=== PATIENT | male | born 1995 | race Caucasian/White ===

== ENCOUNTER 2016-05-08 02:04 | Emergency (ER) | payer BC ==
[~2016-05-08] VITALS: Ht 180.3 cm; Wt 65.4 kg
[2016-05-08 02:06] VITALS: TEMP 36.7; Ht 180.3 cm; Wt 65.4 kg
--- NOTE | 2016-05-08 02:26 | EMERGENCY ROOM VISIT NOTE ---
History Report prepared by Nesha: Yaritza Antonio Under the Supervision of: Dr. Roro Dowling D.O. First contact with patient: 02:11 Chief Complaint: FLANK PAIN Stated Complaint: MONO - LEFT SIDE PAIN History of Present Illness The patient is a 20 year old male who presents to the Emergency Room with complaints of constant left sided abdominal pain beginning today. The patient was diagnosed with Lincoln two weeks ago. He notes that he has been feeling good and worked yesterday. He thinks working might have been too much. The patient was home from [facility] this weekend and was pumping gas today when he began to experience the left sided abdominal pain. He drove back to [place] and still have the abdominal pain when he went to bed. The patient notes that his sore throat is getting better since adding an additional 20mg a day of Prednisone. The patient denies cough, shortness of breath, pain with deep breath or worsening pain with position change. Source of History: patient Onset: today Position: abdomen (left sided) Timing: constant Associated Symptoms: + sorethroat, No SOB, No cough Review of Systems See HPI for pertinent positives & negatives. A total of 10 systems reviewed and were otherwise negative. Past Medical & Surgical Medical Problems: (1) No known health problems Family History Patient reports no known family medical history. Social History Smoking Status: Never Smoker Smokeless Tobacco Use: No Drug Use: none Marital Status: single Housing Status: lives with roommate Occupation Status: [employer] student Current/Historical Medications Scheduled Prednisone (Prednisone), PO UD Allergies Coded Allergies: Sulfamethoxazole w/Trimethoprim (Verified Allergy, Unknown, UNKNOWN, ) Physical Exam Vital Signs Date Time Temp Pulse Resp B/P Pulse Ox O2 Delivery O2 Flow Rate FiO2 05/08/16 04:19 74 18 109/62 98 Room Air 05/08/16 02:06 36.7 73 18 138/83 97 Room Air Physical Exam HEENT: Head - normocephalic and atraumatic Pupils are equal, round, and reactive to light. Extraocular eye muscles are intact, and sclera are anicteric. Nose - moist nasal mucosa without discharge. Mouth - moist buccal mucosa. Oropharynx is nonerythematous and there is no tonsillar exudate or edema noted. Neck: Supple; no JVD, nuchal rigidity, cervical lymphadenopathy. Heart: Regular rate and rhythm. There is a normal S1 and S2 with no murmurs, clicks, or gallops appreciated. Lungs: Clear to auscultation bilaterally with no wheezes, rales, or rhonchi. Abdomen: Soft, completely nontender, nondistended, with good bowel sounds. There are no palpable pulsatile masses or hepatosplenomegaly. There is no guarding, rigidity, or rebound noted. Extremities: No evidence of cyanosis, clubbing, or edema. There are easily palpable peripheral pulses. Skin: warm and dry with good turgor and no rashes. Medical Decision & Procedures ER Provider Diagnostic Interpretation: CT results as stated below per my review and radiologist interpretation: CT ABDOMEN & PELVIS: III-defined airspace opacity at the posterior medial right base may represent atelectasis or developing pneumonia, pneumonitis No evidence of pleural effusion Solid organs appear within limits and contracted gallbladder appear within limits No bowel dilation, free air or free fluid No evidence of adenopathy Radiologist: Pilo Wilkins MD Laboratory Results 05/08/16 02:19 Red Blood Count 5.58, Mean Corpuscular Volume 81.7, Mean Corpuscular Hemoglobin 27.6, Mean Corpuscular Hemoglobin Concent 33.8, Mean Platelet Volume 9.1, Neutrophils (%) (Auto) 71.8, Lymphocytes (%) (Auto) 22.1, Monocytes (%) (Auto) 5.5, Eosinophils (%) (Auto) 0.3, Basophils (%) (Auto) 0.2, Neutrophils # (Auto) 7.26, Lymphocytes # (Auto) 2.24, Monocytes # (Auto) 0.56, Eosinophils # (Auto) 0.03, Basophils # (Auto) 0.02 05/08/16 02:19 Test 05/08/16 02:19 05/08/16 03:10 White Blood Count 10.12 K/uL (4.8-10.8) Red Blood Count 5.58 M/uL (4.7-6.1) Hemoglobin 15.4 g/dL (14.0-18.0) Hematocrit 45.6 % (42-52) Mean Corpuscular Volume 81.7 fL (80-100) Mean Corpuscular Hemoglobin 27.6 pg (25-34) Mean Corpuscular Hemoglobin Concent 33.8 g/dl (32-36) Platelet Count 210 K/uL (130-400) Mean Platelet Volume 9.1 fL (7.4-10.4) Neutrophils (%) (Auto) 71.8 % Lymphocytes (%) (Auto) 22.1 % Monocytes (%) (Auto) 5.5 % Eosinophils (%) (Auto) 0.3 % Basophils (%) (Auto) 0.2 % Neutrophils # (Auto) 7.26 K/uL (1.4-6.5) Lymphocytes # (Auto) 2.24 K/uL (1.2-3.4) Monocytes # (Auto) 0.56 K/uL (0.11-0.59) Eosinophils # (Auto) 0.03 K/uL (0-0.5) Basophils # (Auto) 0.02 K/uL (0-0.2) RDW Standard Deviation 38.8 fL (36.4-46.3) RDW Coefficient of Variation 12.9 % (11.5-14.5) Immature Granulocyte % (Auto) 0.1 % Immature Granulocyte # (Auto) 0.01 K/uL (0.00-0.02) Anion Gap 8.0 mmol/L (3-11) Est Creatinine Clear Calc Drug Dose 111.6 ml/min Estimated GFR () 129.5 Estimated GFR (Non- 111.8 BUN/Creatinine Ratio 12.4 (10-20) Calcium Level 9.0 mg/dl (8.5-10.1) Total Bilirubin 0.4 mg/dl (0.2-1) Direct Bilirubin 0.1 mg/dl (0-0.2) Aspartate Amino Transf (AST/SGOT) 115 U/L (15-37) Alanine Aminotransferase (ALT/SGPT) 257 U/L (12-78) Alkaline Phosphatase 97 U/L (45-117) Total Protein 7.8 gm/dl (6.4-8.2) Albumin 3.9 gm/dl (3.4-5.0) Lipase 187 U/L (73-393) Urine Color YELLOW Urine Appearance CLEAR (CLEAR) Urine pH 7.5 (4.5-7.5) Urine Specific [place] 1.036 (1.000-1.030) Urine Protein NEG (NEG) Urine Glucose (UA) TRACE (NEG) Urine Ketones NEG (NEG) Urine Occult Blood NEG (NEG) Urine Nitrite NEG (NEG) Urine Bilirubin NEG (NEG) Urine Urobilinogen NEG (NEG) Urine Leukocyte Esterase NEG (NEG) Laboratory results per my review. ED Course 0216: Past medical records reviewed. The patient was evaluated in room B6. A complete history and physical exam was performed. An IV lock was initiated and labs are drawn as above. The patient went for a CT scan of the abdomen/pelvis. 0335: I reviewed the results of the laboratory studies with the patient. We are waiting for the CT reading 0400: I reviewed the results of the CT scan with the patient. I've encouraged him to follow-up with [facility] to have his AST/ALT rechecked within about a week. I questioned the patient again about the possibility of pneumonia as shown in the right lower lobe. Patient has no cough or fever. All the symptoms seemed and left side of his chest and abdomen. Medical Decision The patient is a 20 year old male who presents to the ED with left sided abdominal pain. Differential diagnosis includes anxiety, PE, pneumonia, splenomegaly, splenic rupture. Lab findings include normal white blood cell count, stable H&H, normal renal function, glucose 170, normal lipase, transaminase AST 115, ALT 257 secondary to MONO, UA normal. The patient presents with left-sided abdominal pain and lower left chest pain. He has no shortness of breath. I considered the possibility of PE. However, the patient is not hypoxic and not short of breath. CT scan of the abdomen/ pelvis shows no evidence of splenomegaly. There is no splenic rupture. There is no left lower lobe infiltrate. There is this right-sided lower lobe opacity but the patient has no symptoms consistent with an acute pneumonia. Patient did have mild elevation of his transaminase levels. I've asked him to have those repeated. These may still be up because of the Lincoln. Impression Primary Impression: Left upper quadrant abdominal pain of unknown etiology Additional Impression: Elevated transaminase level Scribe Attestation The scribe's documentation has been prepared under my direction and personally reviewed by me in its entirety. I confirm that the note above accurately reflects all work, treatment, procedures, and medical decision making performed by me. Departure Information Dispostion Home / Self-Care Referrals No Doctor, Assigned (PCP) Forms HOME CARE DOCUMENTATION FORM, IMPORTANT VISIT INFORMATION Patient Instructions My [facility] Additional Instructions Follow up with [facility] to have AST and ALT rechecked next week. Return to the ER if you develop worsening symptoms like a fever or increased pain Problem Qualifiers
[2016-05-08 02:29] LABS: BASO % 0.2 %; BASO ABS # 0.02 K/uL (0-0.2); COMPLETE YES; EOS % 0.3 %; HEMATOCRIT 45.6 % (42-52); IG% 0.1 %; LYMPH % 22.1 %; LYMPH ABS # 2.24 K/uL (1.2-3.4); MEAN CELL VOLUME 81.7 fL (80-100); MEAN CORPUSCULAR HEMOGLOBIN 27.6 pg (25-34); MEAN CORPUSCULAR HGB CONC 33.8 g/dl (32-36); MEAN PLATELET VOLUME 9.1 fL (7.4-10.4); MONO % 5.5 %; NEUT % 71.8 %; PLATELET COUNT 210 K/uL (130-400); RED BLOOD COUNT 5.58 M/uL (4.7-6.1); WHITE BLOOD COUNT 10.12 K/uL (4.8-10.8)
[2016-05-08] MEDS ORDERED: OPTIRAY 320 IV PRN (02:30)
[2016-05-08] MEDS ORDERED: PRD/1 PO (02:48)
[2016-05-08 02:52] LABS: BUN/CREATININE RATIO 12.4 (10-20); CREATININE 0.96 mg/dl (0.60-1.40); POTASSIUM 3.6 mmol/L (3.5-5.1)
[2016-05-08 03:27] LABS: URINE APPEARANCE CLEAR (CLEAR); URINE BILIRUBIN NEG (NEG); URINE COLOR YELLOW; URINE NITRITE NEG (NEG); URINE PH 7.5 (4.5-7.5); URINE SPECIFIC GRAVITY 1.036 (1.000-1.030); UROBILINOGEN NEG (NEG)
[2016-05-08 03:43] LABS: MANUAL MICROSCOPIC REQUIRED? NO; REVIEW REQ? NO
[2016-05-08 04:19] VITALS: BP 109/62; PULSE 74; O2SAT 98
--- NOTE | 2016-05-08 07:18 | DIAGNOSTIC IMAGING REPORT ---
CT SCAN OF THE ABDOMEN AND PELVIS WITH IV CONTRAST CLINICAL HISTORY: Left-sided abdominal pain. Mononucleosis. COMPARISON STUDY: No priors. TECHNIQUE: Following the IV administration of 91 cc of Optiray 320, CT scan of the abdomen and pelvis is performed from the lung bases to the proximal femora. Images are reviewed in the axial, sagittal, and coronal planes. IV contrast was administered without complication. Automated dose control exposure was utilized. CT DOSE: 285.06 mGy.cm FINDINGS: Lung bases: The heart is normal in size and without pericardial effusion. There are foci of patchy airspace consolidation with tree-in-bud nodularity seen in the right lower lobe. The left lung base is clear. No pleural effusion is identified. Liver: The contrast-enhanced liver is normal in size, contour, and attenuation. There is no intrahepatic biliary ductal dilatation. The hepatic veins and portal veins are patent. Gallbladder: Unremarkable. Spleen: The spleen is top normal in size measuring 13.3 cm in length. The spleen is otherwise normal as imaged. Pancreas: Unremarkable. Adrenal glands: Unremarkable. Kidneys: The contrast enhanced kidneys are normal in size and without hydronephrosis. The kidneys enhance symmetrically. Abdominal vasculature: The abdominal aorta is normal in course and caliber. Bowel: The small bowel and colon are normal in course and caliber. Visualized portions of the appendix are normal in appearance. Peritoneum: There is no intraperitoneal free air or abdominal ascites. There is a small fat-containing umbilical hernia. Lymphadenopathy: None. Pelvic viscera: The bladder, prostate, and seminal vesicles are normal as imaged. Skeletal structures: No lytic or blastic lesions are seen. IMPRESSION: 1. There are no acute infectious or inflammatory findings in the abdomen or pelvis. 2. An infectious/inflammatory pneumonitis is identified at the right lung base. 3. The spleen is top normal in size measuring 13.3 cm in length, but otherwise normal in appearance. Electronically signed by: Jed Arroyo M.D. 05/08/2016 7:17 AM Dictated Date/Time: 05/08/2016 7:13 AM
== END 2016-05-08 04:53 | disposition home or self-care (01) ==
LOC: C.EDB 02:05
DX: R10.10 Upper abdominal pain, unspecified (principal); R07.9 Chest pain, unspecified; R74.0 Nonspecific elevation of levels of transaminase and lactic acid dehydrogenase [LDH]